=== PATIENT | female | born 1950 | race Caucasian/White ===

== ENCOUNTER 2019-06-28 00:40 | Emergency (ER) | payer MEDICARE, MEDICAID ==
--- NOTE | 2019-06-28 00:56 | Emergency Department Report ---
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 Patient brought to the emergency room via EMS for evaluation after multiple falls from her wheelchair. Patient denied any headache, loss of consciousness but she is complaining of lower back pain. MD Complaint: fall -: This evening Fall From: wheelchair Place Fall Occurred: fdc/SNF Symptoms Prior to Fall: none Location: back Context: tripped/slipped - Related Data Allergies Allergy/AdvReac Type Severity Reaction Status Date / Time No Known Allergies Allergy Unverified 06/28/19 01:12 ED Review of Systems ROS: Stated complaint: GROUND LEVEL FALL Other details as noted in HPI Comment: All other systems reviewed and negative ENT: denies: throat pain Cardiovascular: denies: chest pain, palpitations Gastrointestinal: denies: abdominal pain, nausea, vomiting Musculoskeletal: back pain Neurological: denies: headache, weakness, numbness, paresthesias, confusion ED Physical Exam - General General appearance: alert, in no apparent distress - Head Head exam: Present: atraumatic, normocephalic, normal inspection - Eye Eye exam: Present: normal appearance - ENT ENT exam: Present: normal exam, normal orophraynx, mucous membranes moist - Neck Neck exam: Present: normal inspection, full ROM. Absent: tenderness, meningismus, lymphadenopathy, thyromegaly - Respiratory Respiratory exam: Present: normal lung sounds bilaterally - Cardiovascular Cardiovascular Exam: Present: regular rate, normal rhythm, normal heart sounds - GI/Abdominal GI/Abdominal exam: Present: soft, normal bowel sounds. Absent: distended, tenderness, guarding, rebound, rigid, organomegaly, mass, bruit, pulsatile mass, hernia - Extremities Exam Extremities exam: Present: normal inspection. Absent: calf tenderness - Back Exam Back exam: Present: normal inspection, full ROM. Absent: tenderness, CVA tenderness (R), CVA tenderness (L), muscle spasm, paraspinal tenderness, vertebral tenderness - Neurological Exam Neurological exam: Present: alert, oriented X3, CN II-XII intact - Skin Skin exam: Present: warm, intact, normal color ED Course Vital Signs 06/28/19 06/28/19 01:00 01:05 Temperature 98.8 F Pulse Rate 106 H Respiratory 18 18 Rate Blood Pressure 129/70 Blood Pressure 129/70 [Right] O2 Sat by Pulse 98 98 Oximetry ED Medical Decision Making - Radiology Data Radiology results: report reviewed CT brain, CT lumbar spine is negative for acute finding. 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 Patient brought to the emergency room via EMS for evaluation after multiple falls from her wheelchair. Patient denied any headache, loss of consciousness but she is complaining of lower back pain. Patient's CT brain and CT lumbar spine is negative for acute findings. Patient given a printout for fall precaution and prevention. Critical care attestation.: If time is entered above; I have spent that time in minutes in the direct care of this critically ill patient, excluding procedure time. ED Disposition Clinical Impression: Fall, Back pain Disposition: DC-01 TO HOME OR SELFCARE Is pt being admited?: No Condition: Stable Instructions: Fall Prevention (ED), Acute Low Back Pain (ED) Referrals: PRIMARY CARE, [Referring] - 3-5 Days
--- NOTE | 2019-06-28 01:49 | Cat Scan Report ---
CT head/brain wo con INDICATION / CLINICAL INFORMATION: MAIN: head injury, s/p craniotomy secondary to SAH. Patient states hurts all over. TECHNIQUE: All CT scans at this location are performed using CT dose reduction for ALARA by means of automated e xposure control. COMPARISON: None available. FINDINGS: There is been previous right-sided craniotomy. Encephalomalacia seen in the right posterior parietal region and temporal region. There may be a small area of infarction in the left frontal region. Ventr icle size is increased. No mass or mass effect is seen. No obvious area of intracranial hemorrhage is seen. Visualized paranasal sinuses are clear. IMPRESSION: 1. Previous right-sided craniotomy with encephalomalacia in the right temporoparietal region. 2. Ventricular enlargement Signer Name: Hussein Gomez MD FACR Signed: 06/28/2019 1:45 AM Workstation Name: [id number]
--- NOTE | 2019-06-28 01:54 | Cat Scan Report ---
CT lumbar spine wo con INDICATION / CLINICAL INFORMATION: back pain, fall. TECHNIQUE: All CT scans at this location are performed using CT dose reduction for ALARA by means of automated e xposure control. COMPARISON: None available. FINDINGS: Mild degenerative changes seen in the lower lumbar spine. There appears to be moderate stenosis prese nt at L3-4 and L4-5. Alignment is normal. Soft tissues around the lumbar spine are unremarkable in ap pearance. No fluid collection is seen. IMPRESSION: Mild degenerative change in the lower lumbar spine with moderate stenosis at L3-4 and L4-5 Signer Name: Hussein Gomez MD FACR Signed: 06/28/2019 1:49 AM Workstation Name: [id number]
[2019-06-28 03:06] VITALS: BP 116/59
== END 2019-06-28 03:15 | disposition home or self-care (01) ==
LOC: ED 00:40
DX: M54.5 Low back pain (principal); W19.XXXA Unspecified fall, initial encounter; Z91.81 History of falling; Y93.89 Activity, other specified; Y92.89 Other specified places as the place of occurrence of the external cause; Y99.8 Other external cause status
CPT/HCPCS: 70450; 72131